=== PATIENT | female | born 1975 | race African-American/Black ===

== ENCOUNTER 2017-07-18 09:24 | Outpatient (CLI) | payer OTHER ==
--- NOTE | 2017-07-18 12:04 | CT ---
CT CHEST WITH IV CONTRAST: Date: 07/18/17 Multiple axial tomograms obtained through the chest with IV enhancement. HISTORY: Hodgkin's lymphoma. Comparison made to the recent CT chest of 02/15/17 performed at [facility] and a prior CT chest from [facility] dated 12/29/16. FINDINGS: There is confluent adenopathy in the anterior superior mediastinum which engulfs the arch vessels and surrounds the aortic arch. This density is similar in appearance to 02/15/17. This density at the ao rtic arch is measured at approximately 1.0 cm today with similar measurement noted previously. Small left pleural effusion is again seen, similar to the prior exam. There is ground-glass hazy density in the left lower lobe which could represent atelectasis, although early inflammatory infiltrate cannot be excluded. Bronchiectasis and surrounding parenchymal strandi ng in the anterior right upper lobe is similar in appearance to the prior study. The mass lesion involving the anterior chest wall to the left of midline is again seen. This was desc ribed on the prior chest CT. This mass density has increased in size when compared to that exam. Derik urements today in the axial plane are recorded at 9.4 cm width x 5.2 cm AP dimension. Prior measureme nts were recorded at approximately 8.0 cm width x 5.0 cm AP dimension. This does produce some erosive changes I the mid and distal sternum. It engulfs the costochondral junction of the lower anterior le ft ribs. It does produce mass effect on the anterior pericardial and anterior wall of the right ventr icle, similar to the prior study. There is a small pericardial effusion. IMPRESSION: 1. Anterior chest wall mass has enlarged slightly since the prior exam of 02/15/17. 2. The anterior and superior mediastinal adenopathy is similar in appearance. 3. Small pericardial effusion. 4. Tiny left pleural effusion is similar I appearance. 5. Lung parenchymal changes in both lungs again noted as described above. CT ABDOMEN: Multiple axial tomograms obtained through the abdomen with IV enhancement. Multiplanar reconstruction . HISTORY: Hodgkin's lymphoma. COMPARISON: CT abdomen dated 02/15/17 from [facility]. FINDINGS: The liver, spleen, and pancreas are unremarkable. Adrenal glands and kidneys are unremarkable. Bowel loops unremarkable. No evidence of significant adenopathy identified in the abdomen. IMPRESSION: Stable CT abdomen with no evidence of adenopathy. POS: [facility]
--- NOTE | 2017-07-18 12:19 | CT ---
CT NECK WITH CONTRAST: Date: 07/18/17 Multiple axial tomograms obtained through neck with IV enhancement. HISTORY: Hodgkin's lymphoma. Comparison made to CT neck dated 02/15/17 from [facility]. FINDINGS: Tiny submandibular Level I lymph nodes. Nonspecific Level II jugulodigastric nodes. A left jugulodiga stric Level II node measures 1.5 cm. A right Level II node measures approximately 1.8 cm. These appea r stable from prior exam. Supraclavicular nodes bilaterally are stable, with the largest on the left measuring approximately 1. 2 cm. These were described previously. No other adenopathy or change in the neck identified. IMPRESSION: Stable lymph nodes in the neck when compared to the prior study. POS: [facility]
== END 2017-07-18 09:25 | disposition home or self-care (01) ==
LOC: CT 09:24
PROVIDERS: ATTEND Internal Medicine Medical Oncology
DX: C81.3 Lymphocyte depleted Hodgkin lymphoma (principal); R59.0 Localized enlarged lymph nodes; I31.3 Pericardial effusion (noninflammatory); J90 Pleural effusion, not elsewhere classified
CPT/HCPCS: 70491; 71260; 74160

== ENCOUNTER 2017-11-22 10:08 | Day surgery (SDC) | payer OTHER ==
[2017-11-21 08:47] VITALS: BMI 28.6
[2017-11-22 11:00] LABS: #Basophils 0.2 thou/uL (0.0-0.2); #Eosinphils 0.1 thou/uL (0.0-0.7); #Lymphocytes 0.2 thou/uL (1.20-3.40); #Monocytes 0.3 thou/uL (0.11-0.59); #Neutrophils 15.4 thou/uL (1.40-6.50); %Basophils 1.4 % (0.0-1.0); %Eosinophils 0.4 % (0.0-10.0); %Lymphocytes 1.3 % (21.0-51.0); %Neutrophils 94.9 % (42.0-75.0); Hemoglobin 11.3 g/dL (12.0-16.0); Mean Corpuscular Hemoglobin 27.6 pg (27.0-31.0); Mean Corpuscular Volume 86.1 fl (81.0-99.0); Platelet Count 185 thou/uL (130-400); RBC Distribution Width 18.9 % (11.5-14.5); White Blood Cell (WBC) Count 16.3 thou/uL (4.8-10.8)
[2017-11-22 11:15] LABS: ALT (SGPT) 12 U/L (8-55); AST (SGOT) 15 U/L (5-34); Albumin 3.8 g/dL (3.5-5.0); Alkaline Phosphatase 67 U/L (40-150); Anion Gap 11 mmol/L (10-20); BUN (Urea Nitrogen) 9 mg/dL (7.0-18.7); Bilirubin, Total 0.7 mg/dL (0.2-1.2); Calc. Creatinine Clearance 128 mL/min (70-130); Calcium 9.1 mg/dL (7.8-10.44); Carbon Dioxide 24 mmol/L (22-29); Chloride 103 mmol/L (98-107); Estimated GFR-MDRD Greater than 90; Globulin 4.3 g/dL (2.4-3.5); Glucose 104 mg/dL (70-105); Potassium 3.9 mmol/L (3.5-5.1); Protein, Total 8.1 g/dL (6.0-8.3); Sodium 134 mmol/L (136-145)
[2017-11-22] MEDS ORDERED: CEFAZOLIN/Water 2 GM/20 ML SYRINGE ONE (11:29)
[2017-11-22] MEDS ORDERED: Midazolam HCl 2 mg/2 ml Vial ONE ×2 (11:59→12:01)
[2017-11-22] MEDS ORDERED: Fentanyl 100 MCG/2 ML VIAL ONE ×2 (12:01→15:26)
[2017-11-22] MEDS ORDERED: Propofol 500 MG/50 ML VIAL ONE ×2 (12:02→15:28)
[2017-11-22] MEDS ORDERED: Bupivacaine/Epinephrine 0.25% 30 ML VIAL ONE (15:33)
[2017-11-22] MEDS ORDERED: Lidocaine 2% 10 ML INJ ONE (15:33)
[2017-11-22] MEDS ORDERED: Bupivacaine HCl 0.5%/Epinephrine 1:200,000/PF 30 ml Vial ONE (15:33)
--- NOTE | 2017-11-22 17:11 | RAD ---
CHEST ONE VIEW: 11/22/17 HISTORY: Mediport placement. FINDINGS: Cardiac silhouette is magnified by projection. Pulmonary vasculature is upper limits of normal. Media stinum is midline. Tip of a left subclavian Mediport overlies the superior vena cava. No evidence of pneumothorax. Metallic clips overlie the right axilla. IMPRESSION: Left subclavian Mediport is in good radiographic position. POS: [facility]
--- NOTE | 2017-11-22 19:00 | OP ---
DATE OF PROCEDURE: 11/22/2017 PREOPERATIVE DIAGNOSIS: Lymphoma, dysfunctional MediPort. SURGEON: Nadir Dougherty M.D. PROCEDURE PERFORMED: Removal and replacement of MediPort. INDICATIONS: This is a 42-year-old female who has an existing MediPort that is no longer working, it has been in for years. She needs access for chemo. She desires placement on the opposite side. FINDINGS: Good backflow of venous blood. J-wire threaded easily. Good placement by fluoroscopy lef t subclavian intact system removed from the right. PROCEDURE IN DETAIL: After informed consent was obtained, the patient was taken to the operating brinda m and given total intravenous anesthesia. She was placed in Trendelenburg position. Her chest and n mika were prepped and draped in usual fashion. Local anesthesia was infiltrated subcutaneously and de ep. An introducer needle inserted left subclavian with good backflow of venous blood. J-wire thread ed easily. Fluoroscopy was used showed good placement in superior vena cava. The skin and subcu ane sthetized and a transverse chest wall incision performed. The subcu divided sharply. A pocket was c reated on the pectoralis muscle utilizing electrocautery and a tunneling device used to connect the t ubing between the two incisions. It was connected to the MediPort and the system flushed. The MediP ort was secured to the pectoralis fascia with interrupted 2-0 Prolene suture. The catheter was cut t o size. The peel-away introducer inserted over the wire. The wire was removed. The catheter insert ed through the peel-away introducer and the peel-away introducer removed. Again, fluoroscopy used sh owed good placement in superior vena cava. The subcutaneous was reapproximated with interrupted 3-0 Vicryl. Skin was closed with a running subcuticular 4-0 Rapide. The system was accessed with Blue needle. Good backflow of venous blood, flushed with heparinized saline. I then moved to the right s nancy and the skin and subcutaneous anesthetized and incision was made through the old scar. The capsu le was incised. The MediPort removed intact. The subcutaneous was reapproximated with interrupted 3 -0 Vicryl after hemostasis assured and the skin was closed with a running subcuticular 4-0 Rapide. S carolyn-Strips applied. Sterile bandages applied. Patient tolerated the procedure well and was transfe rred to recovery in good condition. Sponge and needle count verified correct x2.
== END 2017-11-22 18:00 | disposition home or self-care (01) ==
LOC: EEVIPCON 10:08 → SDC 10:08
PROVIDERS: ATTEND Surgery
PROC: 02HV33Z Insertion of Infusion Device into Superior Vena Cava, Percutaneous Approach (ICD-10-PCS; principal; 2017-11-22)
DX: T82.594A Other mechanical complication of infusion catheter, initial encounter (principal); C81.12 Nodular sclerosis Hodgkin lymphoma, intrathoracic lymph nodes; C82.22 Follicular lymphoma grade III, unspecified, intrathoracic lymph nodes; I10 Essential (primary) hypertension; E03.9 Hypothyroidism, unspecified; G62.82 Radiation-induced polyneuropathy; Z79.82 Long term (current) use of aspirin; Z79.899 Other long term (current) drug therapy; Z98.890 Other specified postprocedural states
CPT/HCPCS: 36415; 71045; 80053; 85025; 93005; 93010; C1788; J0670; J1642; J2250; J2704; J3010

== ENCOUNTER 2018-05-02 09:19 | Outpatient (CLI) | payer OTHER ==
--- NOTE | 2018-05-02 11:47 | PET ---
PET CT: HISTORY: 42-year-old female with lymphoma of chest wall. COMPARISON: 02/26/17. TECHNIQUE: PET CT was performed from the skull base through the mid thigh after administration of 17.62 mCi F18- FDG. FINDINGS: In the previous area where there was a large mass associated with hypermetabolic activity along the a nterior aspect of the chest wall, there is some residual hypermetabolic activity. Max SUV value is 2. 6. The previously seen large mass is no longer visualized. It is difficult to separate the hypermetab olic activity of the chest wall from that of the heart which is immediately adjacent to this chest wa ll. There is symmetric hypermetabolic activity within both breasts, which may be physiologic. No suspicio us areas of hypermetabolic activity are seen within the neck. No suspicious areas of hypermetabolic a ctivity are seen within the abdomen or pelvis. Hypermetabolic activity is seen within the bones of the pelvis and in the lower lumbar spine which ma y represent marrow reactivation. CT images used for attenuation correction shows a left-sided MediPort with its tip in the superior ve na cava. IMPRESSION: Improvement in hypermetabolic mass along the anterior chest wall. There is still some persistent hype rmetabolic activity which may represent a small amount of residual disease in this location. POS: [facility]
== END 2018-05-02 09:20 | disposition home or self-care (01) ==
LOC: PET 09:19
PROVIDERS: ATTEND Internal Medicine Hematology & Oncology
DX: C81.12 Nodular sclerosis Hodgkin lymphoma, intrathoracic lymph nodes (principal); R22.2 Localized swelling, mass and lump, trunk
CPT/HCPCS: 78815; A9552

== ENCOUNTER 2018-07-24 10:36 | Outpatient (CLI) | payer OTHER ==
--- NOTE | 2018-07-24 12:29 | MMO ---
BILATERAL SCREENING MAMMOGRAM: Date: 07/24/18 COMPARISON: 02/05/17. HISTORY: Screening mammography. FINDINGS: This patient's mammogram was interpreted with the assistance of computer-aided detection. The breast parenchyma is heterogeneously dense, limiting mammographic sensitivity. Benign calcificati on is seen on the right. A scar marker overlies the upper right breast. No dominant mass or enterprise business architect ural distortion. No concerning microcalcifications. IMPRESSION: BIRADS 2: Benign Finding(s) Annual screening mammography recommended. POS: [facility]
== END 2018-07-24 10:37 | disposition home or self-care (01) ==
LOC: SCSMAMMO 10:36
PROVIDERS: ATTEND Family Medicine
DX: Z12.31 Encounter for screening mammogram for malignant neoplasm of breast (principal)
CPT/HCPCS: 77067

== ENCOUNTER 2019-05-13 14:50 | Emergency (ER) | payer OTHER, SELFPAY | END 2019-05-13 16:20 | disposition home or self-care (01) | LOC: ERS 14:50 | DX: K08.89 Other specified disorders of teeth and supporting structures (principal); I71.2 Thoracic aortic aneurysm, without rupture | CPT/HCPCS: 99283 ==

== ENCOUNTER 2019-09-15 17:53 | Emergency (ER) | payer SELFPAY | END 2019-09-15 20:25 | disposition home or self-care (01) | LOC: ERS 17:53 | DX: K04.7 Periapical abscess without sinus (principal); K02.9 Dental caries, unspecified | CPT/HCPCS: 99283 ==